=== PATIENT | male | born 1990 | race African-American/Black ===

== ENCOUNTER 2023-08-30 11:18 | Outpatient (REF) | payer OTHER, SELFPAY ==
[2023-08-30 14:41] LABS: MANUAL DIFF FLAG NO
[2023-08-30 14:52] LABS: Basophils Percent Auto 0.4 % (0-2); Eosinophils Percent Auto 0.4 % (0-4); Hematocrit 45.8 % (42.0-52.0); Hemoglobin 15.3 g/dl (14.0-18.0); Imm Gran Abs Auto 0.01 X10*3/uL (0.00-0.03); Imm Gran Pct Auto 0.1 % (0.0-0.4); Lymphocytes Absolute Auto 3.7 X10*3/uL (1.2-4.9); Lymphocytes Percent Auto 50.2 % (20-40); Mean Corpuscular HGB Conc 33.4 g/dl (31.0-36.0); Mean Corpuscular Hemoglobin 33.4 pg (27.0-33.0); Mean Platelet Volume 10.6 fL (9.4-12.4); Monocytes Absolute Auto 0.6 X10*3/uL (0.1-1.2); Monocytes Percent Auto 7.9 % (2-11); Platelet Count 226 X10*3/uL (160-400); Red Blood Count 4.58 X10*6/uL (4.60-5.80); Red Cell Distribution Width 11.5 % (11.0-16.0); White Blood Count 7.3 X10*3/uL (4.8-10.8)
[2023-08-30 15:10] LABS: Alanine Aminotransferase 27 U/L (0-40); Albumin Level 4.2 g/dL (3.5-5.0); Alkaline Phosphatase 47 U/L (39-117); Anion Gap 10 (12-20); Aspartate Amino Transferase 30 U/L (5-37); Bilirubin Total 0.6 mg/dL (0.0-1.0); Blood Urea Nitrogen 6 mg/dL (9-16); Calcium 9.2 mg/dL (8.4-10.2); Carbon Dioxide 27 mmol/L (22-29); Chloride 107 mmol/L (96-108); Cholesterol 165 mg/dL (<200); Estimated Glomerular Filt Rate > 60; Glucose Random 84 mg/dL (60-115); HDL Cholesterol 43 mg/dL (>40); LDL Cholesterol Calculated 106 mg/dL (<100); Potassium 3.9 mmol/L (3.3-5.1); Sodium 140 mmol/L (135-145); Total Protein 7.2 g/dL (6.5-8.0); Triglycerides 83 mg/dL (<150)
[2023-08-30 15:17] LABS: TSH reflex Free T4 0.87 uIU/mL (0.32-4.0)
[2023-08-31 08:20] LABS: Syphilis Screen Nonreactive (Nonreactive)
[2023-08-31 08:35] LABS: HBsAGNum1 0.29 S/CO (0.00-0.99); HIV AB/AG Nonreactive (Nonreactive); HIV Num 1 0.04 S/CO (0.00-0.99); Hepatitis B Surface Antigen Negative (Negative); ~HepC Num1 0.14 S/CO (0.00-0.79); ~Hepatitis C Antibody Nonreactive (Nonreactive)
[2023-08-31 13:40] LABS: CT PCR NOT DETECTED (Not Detect.); NG PCR NOT DETECTED (Not Detect.)
== END 2023-08-30 11:19 | disposition home or self-care (01) ==
LOC: HO.CHCLDS 11:18
PROVIDERS: Visit Provider Family Medicine
DX: Z11.4 Encounter for screening for human immunodeficiency virus [HIV] (principal); E66.9 Obesity, unspecified; Z68.30 Body mass index [BMI] 30.0-30.9, adult; Z20.2 Contact with and (suspected) exposure to infections with a predominantly sexual mode of transmission
CPT/HCPCS: 0353U; 36415; 80053; 80061; 84443; 85025; 86780; 86803; 87340; 87389

== ENCOUNTER 2023-09-06 11:13 | Outpatient (REF) | payer OTHER, SELFPAY ==
[2023-09-06 14:16] LABS: Immature Retic Fraction 13.2 % (2.3-13.4); Retic HGB Equivalent 37.4 pg (30.0-35.0); Reticulocyte Percent 2.7 % (0.5-1.8); Reticulocytes Absolute 0.123 X10*6/uL (0.026-0.095)
[2023-09-06 14:57] LABS: TSH reflex Free T4 1.36 uIU/mL (0.32-4.0)
[2023-09-06 15:11] LABS: Folate 7.3 ng/mL (> or = 4.0); Vitamin B12 434 pg/mL (200-900)
== END 2023-09-06 11:14 | disposition home or self-care (01) ==
LOC: HO.CHCLDS 11:13
PROVIDERS: Visit Provider Family Medicine
DX: D75.89 Other specified diseases of blood and blood-forming organs (principal)
CPT/HCPCS: 36415; 82607; 82746; 84443; 85045

== ENCOUNTER 2023-09-24 09:00 | Outpatient (REF) | payer OTHER, SELFPAY ==
[2023-09-24 14:32] LABS: Appearance Urine Clear; Color Urine Dark Yellow; Glucose Urine UA Negative (Negative); Leukocyte Esterase Urine Negative (Negative); Nitrite Urine Negative (Negative); PH 5.5 (5.0-9.0); Specific Gravity - Urine >= 1.030 (1.005-1.025); UMIC TRIGGER UA YES; Urine Blood Moderate (2+) (Negative); Urine Ketones 40 mg/dL (Negative); Urine Protein 30 (1+) mg/dL (Neg-Trace)
[2023-09-24 14:34] LABS: Hematocrit 47.5 % (42.0-52.0); Hemoglobin 15.7 g/dl (14.0-18.0); Mean Corpuscular HGB Conc 33.1 g/dl (31.0-36.0); Mean Corpuscular Hemoglobin 32.6 pg (27.0-33.0); Mean Corpuscular Volume 98.5 fL (80.0-98.0); Mean Platelet Volume 10.5 fL (9.4-12.4); Platelet Count 232 X10*3/uL (160-400); Red Blood Count 4.82 X10*6/uL (4.60-5.80); Red Cell Distribution Width 11.3 % (11.0-16.0); White Blood Count 7.6 X10*3/uL (4.8-10.8)
[2023-09-24 14:37] LABS: Bacteria Urine None Seen (None Seen); Hyaline Casts Urine 0-2 /LPF (0-2); RBC Urine >20 /HPF (0-2); Squamous Epithelial Cell Urine 0-2 /HPF (0-2); WBC Urine 0-5 /HPF (0-5)
[2023-09-24 14:53] LABS: Alanine Aminotransferase 23 U/L (0-40); Albumin Level 4.5 g/dL (3.5-5.0); Alkaline Phosphatase 48 U/L (39-117); Aspartate Amino Transferase 20 U/L (5-37); Bilirubin Direct 0.4 mg/dL (0.0-0.5); Lactate Dehydrogenase 192 U/L (118-273); Total Protein 7.5 g/dL (6.5-8.0)
[2023-09-24 21:14] LABS: Haptoglobin 90 MG/DL ((30-200))
== END 2023-09-24 09:01 | disposition home or self-care (01) ==
LOC: HO.CHCLDS 09:00
PROVIDERS: Visit Provider Family Medicine
DX: R79.89 Other specified abnormal findings of blood chemistry (principal)
CPT/HCPCS: 36415; 80076; 81001; 83010; 83615; 85027

== ENCOUNTER 2023-10-04 17:31 | Outpatient (REF) | payer OTHER, SELFPAY ==
[2023-10-04 17:51] LABS: Appearance Urine Clear; Color Urine Yellow; Glucose Urine UA Negative (Negative); Leukocyte Esterase Urine Negative (Negative); Nitrite Urine Negative (Negative); Urine Blood Negative (Negative); Urine Ketones Negative (Negative); Urine Protein Negative (Neg-Trace)
[2023-10-04 18:07] LABS: Bacteria Urine None Seen (None Seen); Hyaline Casts Urine 0-2 /LPF (0-2); Squamous Epithelial Cell Urine 0-2 /HPF (0-2); WBC Urine 0-5 /HPF (0-5)
[2023-10-04 18:08] LABS: RBC Urine 0-2 /HPF (0-2)
== END 2023-10-04 17:32 | disposition home or self-care (01) ==
LOC: HO.HHCLNP 17:31
PROVIDERS: Visit Provider Family Medicine
DX: R31.29 Other microscopic hematuria (principal)
CPT/HCPCS: 81001